=== PATIENT | female | born 1990 | race Caucasian/White ===

== ENCOUNTER 2023-03-30 13:34 | Outpatient (CLI) | payer OTHER, SELFPAY | END 2023-03-30 13:35 | disposition home or self-care (01) | PROVIDERS: PCP Obstetrics & Gynecology; Visit Provider Advanced Practice Midwife | DX: Z34.91 Encounter for supervision of normal pregnancy, unspecified, first trimester (principal); Z3A.09 9 weeks gestation of pregnancy | CPT/HCPCS: 76817; 86592; 86703; 86762; 86787; 86803; 86850; 86900; 86901; 87086; 87340 ==

== ENCOUNTER 2023-06-22 13:58 | Outpatient (CLI) | payer OTHER, SELFPAY ==
--- NOTE | 2023-06-22 14:00 | CRLHL7_ITS ---
For Patients: As a result of the Century Cures Act, medical imaging exams and procedure reports are released immediately into your electronic medical record. You may view this report before your referring provider. If you have questions, please contact your health care provider. INDICATION: Evaluate anatomy. COMPARISON: 03/30/2023 TECHNIQUE: Real time carr scale imaging of the fetus was performed as well as color Doppler analysis of the umbilical vessels. FINDINGS: Sonographic imaging demonstrates a single living intrauterine gestation. Fetus demonstrates a regular cardiac rate of 129 beats per minute. Fetus has a vertex position. The placenta lies left anterior. The heads of the placenta is located 4.4 cm from the internal cervical os. Amniotic fluid volume appears normal. Single deepest vertical pocket: 4.8 cm. The cervix is closed and measures 3.9 cm in length. The composite ultrasound gestational age is calculated at 22 weeks 1 day with an estimated sonographic due date of 10/25/2023. The estimated weight is 505 grams which lies at the 95th %. The following biometric measurements were obtained: Biparietal diameter: 5.2 cm/21 weeks 6 days 73rd% Head circumference: 19.5 cm/21 weeks 5 days 58th% Abdominal circumference: 18.1 cm/23 weeks 0 days 89th% Femur length: 3.8 cm/22 weeks 1 day 69th% The HC/AC ratio measures: 1.08 range (1.05-1.23) On anatomic survey, there is a normal appearance of the cerebral ventricles, cavum septi pellucidi, cisterna magna and cerebellum. The nose, lips, and facial profile appear normal. The cervical, thoracic and lumbar spine are well visualized and appear normal. There is a normal four-chamber heart view and the left and right ventricular outflow tracts appear normal. The diaphragm and stomach appear normal. The kidneys and bladder also appear normal. There is a normal three-vessel cord and cord insertion site. The four extremities appear normal. IMPRESSION: Concordant clinical and sonographic dating. No intrinsic abnormalities noted on anatomic survey. Dictated by Evin Turner MD @ 06/22/2023 3:25:02 PM (Electronically Signed)
== END 2023-06-22 13:59 | disposition home or self-care (01) ==
LOC: US 13:58
PROVIDERS: Visit Provider Advanced Practice Midwife
DX: Z34.92 Encounter for supervision of normal pregnancy, unspecified, second trimester (principal); Z3A.22 22 weeks gestation of pregnancy
CPT/HCPCS: 76805

== ENCOUNTER 2023-08-06 19:21 | Emergency (ER) | payer OTHER, SELFPAY ==
[2023-08-06 19:43] VITALS: BP 110/68; PULSE 86; RESP 18; TEMP 36.6; O2SAT 99
--- NOTE | 2023-08-06 20:15 | ED_ITS ---
HPI - General Adult General Time Seen by Provider: 20:15 Date Seen: 08/06/23 Chief complaint: Unspecified Complaint, Adult Stated complaint: 27 weeks --fever, hives, headache Time Seen by Provider: 08/06/23 19:51 Source: patient, family, RN notes reviewed and old records reviewed Mode of arrival: ambulatory Limitations: no limitations History of Present Illness HPI narrative: 33-year-old at 27 + 4 with BOBO 10/31/2023 presents with headache and fever for couple of days. Headache is frontal and on the top of the head, waxes and wanes. Does not seem to be worse with position or activity. She has had a fever up to 101.8. Occasional cough, no chest pain. Denies sore throat, has had nasal congestion with her anti , says she had negative COVID test yesterday. No abdominal pain, nausea, vomiting, diarrhea, urinary symptoms. movement is present, no leakage of fluid or abdominal pain, no cramps or contractions. Patient is also noted migratory hives with this, predominantly on the upper inner thighs but also on the arms, abdomen, this is itchy and patient did take Benadryl for yesterday. Related Data Home Medications Medication Instructions Recorded Confirmed ascorbate calcium (vitamin C) 500 500 mg PO QDAY 03/30/23 08/06/23 mg tablet ascorbic acid 30 mg-collagen, tab PO 03/30/23 08/06/23 hydrolyzed 833.3 mg tablet (Collagen Skin Renewal) cholecalciferol (vitamin D3) 25 25 mcg PO QDAY 03/30/23 08/06/23 mcg (1,000 unit) capsule docosahexaenoic acid 200 mg mg PO 03/30/23 08/06/23 capsule ( DHA) glucosamine sulfate 500 mg tablet 500 mg PO QDAY 03/30/23 07/20/23 (Glucosamine) lutein 6 mg capsule 6 mg PO QDAY 03/30/23 07/20/23 multivitamin 1 tab PO QDAY 03/30/23 08/06/23 vitamin B complex 1 tab PO QDAY 03/30/23 08/06/23 biotin 1 mg capsule 1 mg PO QDAY 08/06/23 08/06/23 omega-3 fatty acids 500 mg capsule 500 mg PO QDAY 08/06/23 08/06/23 Allergies Allergy/AdvReac Type Severity Reaction Status Date / Time No Known Drug Allergies Allergy Verified 07/20/23 13:54 [facility] Medical History (Updated 08/06/23 @ 21:53 by Reno Li MD) Normal spontaneous vaginal delivery (01/20/22) ?O80 - Encounter for full-term uncomplicated delivery (ICD-10) Surgical History (Updated 03/30/23 @ 13:22 by Maribel Shirley CNM) History of wisdom tooth extraction (2010) ?K08.409 - Partial loss of teeth, unspecified cause, unspecified class (ICD- 10) Family History (Updated 03/30/23 @ 13:23 by Maribel Shirley CNM) Maternal Grandmother Atrial septal defect Maternal Grandfather Heart disease Mother No problems noted. Father No problems noted. Sister No problems noted. 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 Seat Belt Use: Routinely Smoking: Denies past/present Alcohol/day: Denies while , not prior Caffeine: 2 cups of coffee Drug Use: Denies past/present Chicken Pox: Yes as a child MRSA: Denies Smoking Status: Never smoker Non-prescribed substance use: denies use Little interest or pleasure in doing things: not at all Feeling down, depressed, or hopeless: not at all Exam Const: Vital Signs, click to edit/add: Vital Signs - 24 hr 08/06/23 19:43 Temperature 97.8 F Pulse Rate [Left P ulse Oximeter] 86 Respiratory Rate 18 Blood Pressure [Ri ght Upper Arm] 110/68 Pulse Oximetry 99 Oxygen Delivery Me thod Room Air Course Course ED Course: Patient seen examined, prior records reviewed. Patient presents today with fever, hives, and mild cough. In the emergency department, she is afebrile and feels better is. She has had headache with this but no nuchal rigidity, meningitis or acute encephalitis unlikely. COVID, influenza, strep are ordered along with chest x-ray and urinalysis, blood test. Patient will be given fluids, Benadryl IV, and monitor in the department. Suspect viral process, and if labs are reassuring in no source of infection found today, continue symptomatic treatment only. Reevaluation(s) Time of Reevaluation #1: 21:51 Reevaluation #1: Labs independently interpreted by me with normal CBC, hemoglobin is slightly low likely related , basic panel is reassuring other than mild hypokalemia urinalysis not consistent with infection, COVID, influenza, RSV are negative. Chest x-ray independently interpreted by me negative for acute findings. Patient is stable for discharge with outpatient follow-up as needed. Can continue Benadryl as needed for itching, Tylenol as needed for fever. Vital Signs Vital signs: Initial Vital Signs Temperature 97.8 F 08/06/23 19:43 Temperature Source Temporal Artery Scan 08/06/23 19:43 Pulse Rate 86 08/06/23 19:43 Pulse Rhythm Regular 08/06/23 19:43 Respiratory Rate 18 08/06/23 19:43 Blood Pressure 110/68 08/06/23 19:43 Blood Pressure Mean 82 08/06/23 19:43 Blood Pressure Position Sitting 08/06/23 19:43 Pulse Oximetry 99 08/06/23 19:43 Oxygen Delivery Method Room Air 08/06/23 19:43 Vital Signs Temperature 97.8 F 08/06/23 19:43 Pulse Rate 86 08/06/23 19:43 Respiratory Rate 18 08/06/23 19:43 Blood Pressure 110/68 08/06/23 19:43 Pulse Oximetry 99 08/06/23 19:43 Oxygen Delivery Method Room Air 08/06/23 19:43 Temperature 97.8 F 08/06/23 19:43 Pulse Rate 86 08/06/23 19:43 Respiratory Rate 18 08/06/23 19:43 Blood Pressure 110/68 08/06/23 19:43 Pulse Oximetry 99 08/06/23 19:43 Oxygen Delivery Method Room Air 08/06/23 19:43 Medical Decision Making Lab Data Labs: Lab Results 08/06/23 08/06/23 Range/Units 20:33 20:40 WBC 5.58 (4.50-11.00) K/uL RBC 3.65 L (4.00-5.20) m/uL Hgb 10.9 L (12.0-16.0) gm/dL Hct 32.5 L (33.0-51.0) % MCV 89 (80-100) fL MCH 30 (26-34) pg MCHC 34 (32-36) gm/dL RDW Coeff of Arnav 12.8 (11.5-15.5) % Plt Count 134 L (140-440) K/uL Neut % (Auto) 70.0 (42.0-72.0) % Lymph % (Auto) 22.0 (20-44) % Wallace % (Auto) 5.6 (0.0-11.0) % Eos % (Auto) 0.2 (0.0-7.0) % Baso % (Auto) 0.2 (0.0-3.0) % Neut # (Auto) 3.91 (1.7-7.0) K/uL Lymph # (Auto) 1.23 (0.90-2.90) K/uL Wallace # (Auto) 0.30 (0.00-0.90) K/UL Eos # (Auto) 0.01 (0.00-0.50) K/uL Baso # (Auto) 0.01 (0.00-0.30) K/uL Abs Immat Gran (auto) 0.11 (0.00-0.30) K/uL Imm/Tot Granulo (auto) 2.0 % Sodium 135 (135-149) mmol/L Potassium 3.2 L (3.6-5.1) mmol/L Chloride 105 (96-114) mmol/L Carbon Dioxide 23 (20-32) mmol/L Anion Gap 7 (7-15) mEq/L BUN 7 (5-24) mg/dL Creatinine 0.6 (0.5-1.5) mg/dL Estimated GFR 122 ml/min Glucose 106 (60-115) mg/dL Calcium 9.0 (8.4-10.6) mg/dL Urine Color Yasmeen A (Yellow) Urine Appearance Slightly Cloudy A (Clear) Urine pH 7.0 (5.0-8.5) Ur Specific [place] 1.020 (1.000-1.030) Urine Protein 1+ A (Negative) Urine Glucose (UA) Negative (Negative) Urine Ketones Trace A (Negative) Urine Blood Negative (Negative) Urine Nitrite Negative (Negative) Urine Bilirubin Negative (Negative) Urine Urobilinogen 1.0 (0.2-1.0) Ur Leukocyte Esterase Trace A (Negative) Urine RBC 0-2 (0-2) Urine WBC 2-5 (0-5) Ur Squamous Epith Cells Moderate A (None-Few) Urine Bacteria Few A (None) SARS-CoV-2 (PCR) Negative SARS-CoV-2 (Negative) Influenza Type A (PCR) Negative PCR FLU A (Negative) Influenza Type B (PCR) Negative PCR FLU B (Negative) RSV (PCR) Negative PCR RSV (Negative) Discharge Plan Discharge Clinical Impression: Fever, Urticaria Patient Disposition: Home, Self-Care Condition: Stable Instructions: Urticaria (ED), Fever in Adults (ED) Additional Instructions: Take Tylenol as needed for fever. Follow-up with your primary care doctor in 2- 3 days. You may take Benadryl to help with itching. Activity Level: No Restrictions Prescriptions: No Action omega-3 fatty acids 500 mg capsule 500 mg PO QDAY biotin 1 mg capsule 1 mg PO QDAY DHA 200 mg capsule PO multivitamin Tablet 1 tab PO QDAY ascorbate calcium (vitamin C) 500 mg tablet 500 mg PO QDAY vitamin B complex Tablet 1 tab PO QDAY cholecalciferol (vitamin D3) 25 mcg (1,000 unit) capsule 25 mcg PO QDAY glucosamine sulfate [Glucosamine] 500 mg tablet 500 mg PO QDAY Rx Instructions: administer with a meal Collagen Skin Renewal 30-833.3 mg tablet PO lutein 6 mg capsule 6 mg PO QDAY Rx Instructions: give with meal/snack Follow Up/Referrals: Provider,Not a Local [Referring] - Stand Alone [facility]: [facility] Info Instructions
--- NOTE | 2023-08-06 20:23 | CRLHL7_ITS ---
For Patients: As a result of the Cures Act, medical imaging exams and procedure reports are released immediately into your electronic medical record. You may view this report before your referring provider. If you have questions, please contact your health care provider. INDICATION: Shortness of breath, cough, fever. TECHNIQUE: Chest 2 views. COMPARISON: None. FINDINGS: Cardiovascular and mediastinum: Heart size and vasculature are normal in caliber and appearance. Lungs and pleural spaces: Lungs are clear. No sign of infiltrate or mass. No sign of pleural effusion. No pneumothorax. Bones and soft tissues: No significant findings. IMPRESSION: No acute or significant findings. Dictated by Anthony Mesa MD @ 08/06/2023 9:28:38 PM (Electronically Signed)
[2023-08-06 20:39] LABS: Appearance Urine Slightly Cloudy (Clear); Bilirubin Urine Negative (Negative); Blood Urine Negative (Negative); Color Urine Amber (Yellow); Glucose Urine Negative (Negative); Ketones Urine Trace (Negative); Leukocyte Esterase Urine Trace (Negative); Nitrite Urine Negative (Negative); Protein Urine 1+ (Negative)
[2023-08-06] MEDS: LACTATED RINGERS 1000 ML 1,000 ML IV (20:40)
[2023-08-06] MEDS: diphenhydrAMINE 50 MG/ML inj 25 MG IVP (20:40)
[2023-08-06 20:49] LABS: Bacteria Urine Few; RBC Urine 0-2 (0-2); Squamous Epithelial Cell Urine Moderate (None-Few)
[2023-08-06 20:53] LABS: Basophils Absolute Auto 0.01 K/uL (0.00-0.30); Basophils Percent Auto 0.2 % (0.0-3.0); Eosinophils Absolute Auto 0.01 K/uL (0.00-0.50); Eosinophils Percent Auto 0.2 % (0.0-7.0); Hematocrit 32.5 % (33.0-51.0); Hemoglobin* 10.9 gm/dL (12.0-16.0); Immature Granulocytes Abs Auto 0.11 K/uL (0.00-0.30); Lymphocytes Absolute Auto 1.23 K/uL (0.90-2.90); Mean Corpuscular HGB Conc 34 gm/dL (32-36); Mean Corpuscular Hemoglobin 30 pg (26-34); Mean Corpuscular Volume 89 fL (80-100); Monocytes Percent Auto 5.6 % (0.0-11.0); Neutrophils Absolute Auto 3.91 K/uL (1.7-7.0); Platelet Count* 134 K/uL (140-440); RDW Coefficient of Variation % 12.8 % (11.5-15.5); Red Blood Count 3.65 m/uL (4.00-5.20); White Blood Count* 5.58 K/uL (4.50-11.00)
[2023-08-06 21:01] LABS: Slide Review Reflex No
[2023-08-06 21:06] LABS: Chloride* 105 mmol/L (96-114); Sodium* 135 mmol/L (135-149)
[2023-08-06 21:07] LABS: Potassium* 3.2 mmol/L (3.6-5.1)
[2023-08-06 21:09] LABS: Anion Gap 7 mEq/L (7-15); Carbon Dioxide* 23 mmol/L (20-32); Creatinine* 0.6 mg/dL (0.5-1.5); Estimated Glomerular Filt Rate 122 ml/min
[2023-08-06 21:10] LABS: Blood Urea Nitrogen* 7 mg/dL (5-24); Glucose* 106 mg/dL (60-115)
[2023-08-06 21:33] LABS: PCR FLU A Negative PCR FLU A (Negative); PCR FLU B Negative PCR FLU B (Negative); PCR RSV Negative PCR RSV (Negative)
[2023-08-06 21:34] LABS: SARS PCR* Negative SARS-CoV-2 (Negative)
[2023-08-06 22:01] VITALS: BP 112/74; PULSE 80; RESP 12; TEMP 36.6
[2023-08-06 23:00] LABS: Strep A DNA Probe* NOT DETECTED (Not Detectd)
== END 2023-08-06 22:00 | disposition home or self-care (01) ==
PROVIDERS: Emergency Provider Family Medicine; PCP Family Medicine
DX: R50.9 Fever, unspecified (principal); L50.9 Urticaria, unspecified; Z3A.27 27 weeks gestation of pregnancy
CPT/HCPCS: 36415; 71046; 80048; 81001; 85025; 87086; 87631; 87651; 96365; 99283; 99284; J1200; J7120

== ENCOUNTER 2023-08-16 13:46 | Outpatient (CLI) | payer OTHER, SELFPAY | END 2023-08-16 13:47 | disposition home or self-care (01) | LOC: NFLDREF 08-20 07:16 | PROVIDERS: PCP Family Medicine; Visit Provider Advanced Practice Midwife | DX: Z34.93 Encounter for supervision of normal pregnancy, unspecified, third trimester (principal); Z3A.29 29 weeks gestation of pregnancy | CPT/HCPCS: 86592 ==

== ENCOUNTER 2023-10-04 13:58 | Outpatient (CLI) | payer OTHER, SELFPAY ==
[2023-10-05 16:03] LABS: Strep B DNA Probe Negative (Negative); Strep B Susceptibility Needed? No
== END 2023-10-04 13:59 | disposition home or self-care (01) ==
LOC: NFLDREF 13:58
PROVIDERS: PCP Family Medicine; Visit Provider Advanced Practice Midwife
DX: Z34.93 Encounter for supervision of normal pregnancy, unspecified, third trimester (principal); Z3A.36 36 weeks gestation of pregnancy
CPT/HCPCS: 87081; 87653

== ENCOUNTER 2023-10-25 12:14 | Outpatient (CLI) | payer OTHER, SELFPAY ==
--- NOTE | 2023-10-25 12:15 | CRLHL7_ITS ---
For Patients: As a result of the Century Cures Act, medical imaging exams and procedure reports are released immediately into your electronic medical record. You may view this report before your referring provider. If you have questions, please contact your health care provider. INDICATION: Small for dates. TECHNIQUE: Ultrasound OB pelvis transabdominal. Real-time carr-scale imaging of the fetus was performed as well as color Doppler and spectral Doppler analysis of the umbilical artery. COMPARISON: 06/22/2023. FINDINGS: Provided gestational age: 39 weeks 1 day Intrauterine gestation: Present. cardiac activity: 133 BPM. Presentation: Vertex. Amniotic fluid volume: Normal. The deepest vertical pocket is 6.4 cm. Placenta: Anterior. Cervix: Not well-seen. Biparietal diameter: 9.3 cm Head circumference: 33.2 cm Abdominal circumference: 34.2 cm Femur length: 7.6 cm The composite ultrasound gestational age is 38 weeks and 2 days. The estimated weight is 3442 grams or 7 pounds and 9 ounces. This corresponds to the 48 percentile. Incidentally the stomach was noted to be moderately distended. IMPRESSION.: 1. Viable intrauterine gestation with biometry corresponding to the 48 percentile. 2. Normal amniotic fluid volume. 3. Incidentally noted distention of the stomach. At this point in gestation, recommend correlation with exam and any symptoms after . Dictated by Maribel Haque MD @ 10/25/2023 1:07:08 PM (Electronically Signed)
== END 2023-10-25 12:15 | disposition home or self-care (01) ==
LOC: US 12:15
PROVIDERS: PCP Family Medicine; Visit Provider Advanced Practice Midwife
DX: O36.5930 Maternal care for other known or suspected poor fetal growth, third trimester, not applicable or unspecified (principal); Z3A.39 39 weeks gestation of pregnancy
CPT/HCPCS: 76816

== ENCOUNTER 2023-11-02 15:42 | Outpatient (CLI) | payer OTHER, SELFPAY ==
[2023-11-02 16:57] VITALS: PULSE 81; O2SAT 99
[2023-11-02 16:58] VITALS: BP 119/69; PULSE 74; RESP 16; TEMP 36.8
--- NOTE | 2023-11-02 19:00 | PC.OBNST ---
NST Note NST Note Start: 11/02/23 16:42 Freq: ONCE Status: Active Protocol: Document 11/02/23 18:59 [facility] (Rec: 11/02/23 19:00 [facility] [id number]) NST Note 2 Para (# of births) 1 EDC 10/31/23 Gestational Age In Weeks & Days 40 Weeks & 2 Days Patient Presented with Complaint(s) of Contractions/cramping Reactive Yes Appropriate for Gestational Age Yes OLYA Clifton RN Date 11/02/23 Reactive Yes Appropriate for Gestational Age Yes OLYA Aldridge RN Date 11/02/23 OB NST charge Yes Complete NST Note via Write Note Yes The provider's electronic signature indicates the NST is reactive/appropriate for gestational age. *Note to provider: If an addendum is required, open the patient's chart and click on the note under the Nurse/Allied Health tab.
== END 2023-11-02 19:00 | disposition home or self-care (01) ==
LOC: OB OUT 15:45 → OB 16:39
PROVIDERS: PCP Family Medicine; Visit Provider Advanced Practice Midwife
DX: O47.1 False labor at or after 37 completed weeks of gestation (principal); Z3A.40 40 weeks gestation of pregnancy
CPT/HCPCS: 59025; G0463

== ENCOUNTER 2023-11-02 22:50 | Outpatient (CLI) | payer OTHER, SELFPAY ==
[2023-11-02 23:07] VITALS: BP 119/69; PULSE 84; RESP 16; TEMP 36.9
[2023-11-02 23:16] VITALS: PULSE 84; O2SAT 98
[2023-11-02 23:21] VITALS: PULSE 86; O2SAT 97
[2023-11-02 23:26] VITALS: PULSE 84; O2SAT 97
[2023-11-02 23:31] VITALS: PULSE 82; O2SAT 97
[2023-11-02 23:36] VITALS: PULSE 83; O2SAT 97
[2023-11-02] MEDS: MORPHINE 10 MG/ML inj IM (23:55)
[2023-11-02] MEDS: hydrOXYzine pamoate 25 MG CAPSULE 100 MG PO (23:55)
--- NOTE | 2023-11-03 04:58 | PC.OBNST ---
NST Note NST Note Start: 11/02/23 22:56 Freq: ONCE Status: Discharge Protocol: Document 11/03/23 00:35 [facility] (Rec: 11/03/23 00:37 [facility] [id number]) NST Note 2 Para (# of births) 1 EDC 10/31/23 Gestational Age In Weeks & Days 40 Weeks & 3 Days Patient Presented with Complaint(s) of Contractions/cramping Reactive Yes RN Daryl Pope RN Date 11/03/23 Reactive Yes RN Daryl Pope RN Date 11/03/23 OB NST charge Yes Complete NST Note via Write Note Yes The provider's electronic signature indicates the NST is reactive/appropriate for gestational age. *Note to provider: If an addendum is required, open the patient's chart and click on the note under the Nurse/Allied Health tab.
== END 2023-11-03 00:06 | disposition home or self-care (01) ==
LOC: OB OUT 22:51 → OB 22:51
PROVIDERS: PCP Family Medicine; Visit Provider Advanced Practice Midwife
DX: O47.1 False labor at or after 37 completed weeks of gestation (principal); Z3A.40 40 weeks gestation of pregnancy
CPT/HCPCS: 59025; G0463; A9270; J2270

== ENCOUNTER 2023-11-03 02:08 | Inpatient (IN) | payer OTHER, SELFPAY ==
[2023-11-03] VITALS (13 sets, daily range): BP systolic 99–131; BP diastolic 59–79; PULSE 64–98; RESP 15–16; TEMP 36.4–37.2; O2SAT 97–98; BMI 29.5
[2023-11-03 02:27] LABS: Basophils Percent Auto 0.3 % (0.0-3.0); Eosinophils Percent Auto 0.5 % (0.0-7.0); Hemoglobin* 11.4 gm/dL (12.0-16.0); Immature Granulocytes Pct Auto 0.3 %; Lymphocytes Percent Auto 14.7 % (20-44); Mean Corpuscular HGB Conc 34 gm/dL (32-36); Mean Corpuscular Hemoglobin 28 pg (26-34); Mean Corpuscular Volume 83 fL (80-100); Monocytes Percent Auto 6.2 % (0.0-11.0); Platelet Count* 95 K/uL (140-440); Red Blood Count 4.08 m/uL (4.00-5.20); White Blood Count* 11.63 K/uL (4.50-11.00)
[2023-11-03 02:30] LABS: Slide Review Reflex No
[2023-11-03] MEDS: OXYTOCIN 30 unit/500 ML in NS 30 UNIT/500 ML BAG 300 UNIT IVPB (02:47)
--- NOTE | 2023-11-03 04:04 | W.PM.OBVAGDE ---
OB Procedure Vag Delivery Mother Details Mother Details: The patient is a 33 year-old, 2, now Para 2, admitted on 11/03/23 at 40 3/7 weeks gestation. : 2 Para: 2 Weeks Gestation: 40 Additional Details Amniotic Membrane Status: SROM Amniotic Membrane Rupture Date: 11/03/23 Amniotic Membrane Rupture Time: 02:25 Amniotic Membrane Fluid Description: Clear Analgesia/Anesthesia Type: Local Waterbirth: Yes Pitcoin: Yes ([facility] only) Intrapartal Events: Precipitous Labor <3 Hrs Labor Onset: 00:20 Complete: 02:08 Pushin:35 Heart: heart tones during second stage were assessed just prior to entering tub with delivery imminent and occurring shortly after entering. Delivery Details Delivery Date: 11/03/23 Delivery Time: 02:39 Route of delivery: Infant Gender: Female Viability: Alive; Heart Rate Present Position at Delivery: OA Delivery Details: Patient had presented to triage multiple times in the last 12 hours. She was unchanged with multiple triage exams and given morphine and Vistaril then discharge home at 1205. FHR tracing was reactive with discharge from triage. She initially got great relief but reports that contractions got more intense when she arrived home, approximately 15 minutes after discharge. She returned to the center with an urge to push at 0208 am. Patient was admitted for spontaneous labor and progressed precipitously from previous exam. SROM noted at 0225 with clear fluid. Patient was complete at 0208 and pushing at 0235 just prior to entrance to the tub. Tub temp on entrance was higher than preferred at 103, cold water was added and ice buckets to bring temp to 100. Patient desired waterbirth and head was visible with efforts during contractions even prior to pushing. Given the likelihood of precipitous delivery, monitors were removed and she was assisted to tub. of a viable female at 0239, kneeling in the tub. Vertex delivered OA. No nuchal cord or shoulder. Body delivered easily and without incident. As baby was brought up from the water, cord was found around the shoulders and easily reduced. Infant passed between mothers legs after delivery a brought up from the water and placed on maternal lower abdomen with a weak cry. Tactile stimulation was done and crying was illicited, decision was made to clamp and cut at about 60 seconds to transfer to warmer for further evaluation. cried as soon as removed from maternal arms. Mother was assisted from the tub to the bed. Baby was brought to mothers chest once in the bed. APGARS were 6 at one minute and 8 at five minutes respectively. Mouth was bulb suctioned. Placenta with a 3 vessel cord delivered spontaneously at 0300. Upon initial inspection of placenta a small area on the side appears but able to bring cotyledon back together to create a complete appearance. Sent to pathology as a caution. Bleeding appropriate and minimal concern for retained placenta. Fundus firm. 2nd degree identified and repaired in typical fashion, superficial separation of skin extended toward rectum. Rectal exam performed, no concern for interruption of rectal muscle. QBL 50 cc with EBL 300 cc from tub. Mother and baby stable; mother plans to breastfeed. weight pending. 1 Minute Interval Total Score: 6 5 Minute Interval Total Score: 8 Additional Details Shoulder Dystocia: No Placenta Delivery Time: 03:00 Placental Delivery Description: Spontaneous Delivery repair: Vicryl Procedure Done: Global Blood Loss: 350 Laceration: Perineal - 2nd Degree Blood Loss Measurement Type: QBL (+ EBL from tub) Bakri Used: No Sponge/Need Count Correct: Yes Cord Vessel Description: 3 Vessels and Around Body (over shoulders, easily reduced) Event Summary Status: Mother and were stable after delivery. Disposition: floor
--- NOTE | 2023-11-03 04:28 | W.PM.LDBA ---
Subjective History of Present Illness Date Seen: 11/03/23 Narrative: Jane is a 33 yo at 40 3/7 weeks gestation being admitted to Labor and Delivery for spontaneous onset of labor. She has been to triage multiple times this evening and discharge after hours of no cervical change. She was most recently given morphine and Vistaril. She initially got relief and was able to relax for the ride home and rest. After arriving home, approximately 15 minutes later she felt contractions return quickly intensify. She started to feel pressure and returned to the center and soon after began having an urge to push. Her full history and physical was dictated by Pedro Hermosillo CNM on 10/18/2023. Please see this for details. Specific Issues/Plans H & P done 10/18/23 by Pedro Hermosillo IOL 11/07 1. Hypoechoic area noted near placenta on tech report of anatomy scan, not noted on final report 2. Hgb 10.1 at 29 weeks recommended iron supplement 3. Measuring small for dates at 38 wks, growth u/s at 39.1 wks: EFW 48%. Distended stomach noted, no follow up needed. Pap due pp TDAP:Declines on 08/16. Offer at next appt. Flu:Declines Covid:Declines RSV: declines OB - Problem Based A/P Additional Plan (1) Pain during labor: Status: Acute (2) Spontaneous onset of labor: Status: Acute (3) 40 weeks gestation of : Status: Acute Plan ASSESSMENT:? 33 at 40 3/7 weeks gestation? complicated by:? Labor type: Spontaneous, Active labor? FHR reassuring on admission Labor complicated by: quick change following morphine and Vistaril administration? GBS negative? ? PLAN:? 1. Routine intrapartum cares as ordered. Continue with expectant management? 2. Monitoring per policy, intermittent. Will attempt to get a NST prior to tub. Patient NST was reactive at 0005 discharge.? 3. Planning unmedicated . Desires water . Consent signed. Hep C negative. Candidate for analgesia of choice if desired.?? 4. Patient encouraged to reposition and ambulate to promote physiologic labor and . 5. Anticipate ? Delivery/Labor/Induction Plan Plan: expectant management OB Exam Physical Exam Vital signs: Temp Pulse BP 98.5 F 89 121/79 11/03/23 04:11 11/03/23 04:26 11/03/23 04:26 Narrative: Vitals Reviewed Constitutional:? Alert and oriented x3 HEENT:? Normocephalic, atraumatic Neck:? Supple Abdomen:? Soft, nontender, and gravid. Vertex by Jack's, confirmed with cervical exam. Extremities:? No edema or erythema Cervix: 10 cm/+3 FHR on admission 120s, minimal to moderate variablity Detailed Labor and Delivery Exam Patient Gravid: Yes Fetus (Single) Heart Rate Baseline: 120
[2023-11-03] MEDS: IBUPROFEN 600 MG TABLET PO ×3 (04:52→18:15)
[2023-11-03] MEDS: ACETAMINOPHEN 500 MG TABLET 1000 MG PO ×2 (07:23→14:09)
[2023-11-03] MEDS: DOCUSATE SODIUM 100 MG CAPSULE PO (14:09)
[2023-11-04 07:58] LABS: Hemoglobin* 10.5 gm/dL (12.0-16.0)
--- NOTE | 2023-11-04 08:44 | PM.OBDSVD1 ---
DS: Providers Provider Date Seen: 11/04/23 Date of admission: 11/03/23 02:08 Primary care physician: Pavan Muir MD Admitting Clinician: Maribel Shirley CNM Attending Physician on discharge: Lara Gandhi CNM Date of Discharge: 11/04/23 DS: Diagnosis Discharge Diagnosis (1) care and examination immediately after delivery: Status: Acute (2) Lactating mother: Status: Acute (3) Thrombocytopenia affecting : Status: Acute Problem details: Diagnosed with admission labs during delivery. Resulted after . Exam Narrative: Exam Narrative: GENERAL APPEARANCE:? normal affect, alert, no distress MOOD:? appropriate CHEST:? clear to auscultation HEART:? regular rate and rhythm ABDOMEN:? soft, non-tender the uterine fundus is 1 cm below Umbilicus, Midline and is appropriate for the stage of recovery. PERINEUM:? mild edema of the perineum, there is a Perineal Laceration,? that is healing well. EXTREMITIES:? normal and trace edema Const: Vital Signs, click to edit/add: Vital Signs - 24 hr 11/03/23 14:03 11/03/23 18:12 11/03/23 23:38 Temperature 97.6 F 98.1 F Pulse Rate [Pulse Oximeter] 72 69 64 Respiratory Rate 15 15 Blood Pressure [Le ft Arm] 127/76 111/75 115/78 Pulse Oximetry 98 98 97 Oxygen Delivery Me thod Room Air Room Air Documenting provider has reviewed patient's vital signs: yes OB - DS: Summary Hospital Course Hospital Course: Jane is a 33 y.o. who was admitted to [facility] for active labor. ?She had an uncomplicated NVD.?The patient feels well. ?The pain is well controlled with current medications. ?She has no new complaints. ?She is breast feeding and reports things are going well.? the patient has done well.? Vitals have been stable.? She has remained afebrile.? Has a good appetite, is tolerating a general diet. ?She is voiding without difficulty.? She is passing gas and has not had a bowel movement.? She is ambulating and denies any dizziness.? Has Small amount of rubra lochia. ?She is planning condoms or the Paraguard IUD for prevention. We discussed her low platelet level, future and follow up plan to check level again around 6 weeks . Peripartum Data Infant delivery method: Vaginal Laceration description: Perineal - 2nd Degree complications: none Infant Gender: Female Infant Discharge Plan: Home Status at Discharge Functional status at discharge: independent ambulation Overall status at discharge: patient is progressing back to baseline Time Spent with Patient Time attestation: Total time spent providing and/or coordinating discharge services: Time spent: Less than 30 minutes Discharge Plan Discharge Disposition: Home, Self-Care Date of Admission: 11/03/23 02:08 Attending Provider on Discharge: Lara Gandhi Primary Care Provider: Pavan Muir Condition: Stable Anticipated Discharge Date/Time: 11/04/23 12:00 Discharge Medications: New docusate sodium 100 mg Capsule 100 mg PO DAILY Qty: 90 2RF ibuprofen 600 mg Tablet 600 mg PO Q6H PRNQty: 60 0RF acetaminophen 500 mg Tablet 1,000 mg PO Q6H PRNQty: 0 0RF Continued omega-3 fatty acids 500 mg capsule 500 mg PO QDAY biotin 1 mg capsule 1 mg PO QDAY DHA 200 mg capsule 200 mg PO DAILY multivitamin Tablet 1 tab PO QDAY ascorbate calcium (vitamin C) 500 mg tablet 500 mg PO QDAY vitamin B complex Tablet 1 tab PO QDAY cholecalciferol (vitamin D3) 25 mcg (1,000 unit) capsule 25 mcg PO QDAY glucosamine sulfate [Glucosamine] 500 mg tablet 500 mg PO QDAY Rx Instructions: administer with a meal Collagen Skin Renewal 30-833.3 mg tablet 1 tab PO DAILY lutein 6 mg capsule 6 mg PO QDAY Rx Instructions: give with meal/snack magnesium 250 mg tablet 250 mg PO QDAY ferrous sulfate [High Potency Iron] 10 mg PO .every other day Discharge Orders: Discharge Order (Routine); Ordered 11/04/23 Ordered By: Lara Gandhi Patient Education: OB Over the Counter Medication Information, OB Vaginal/Breast Feeding Additional Instructions: Discharge instructions were reviewed with the patient including signs and symptoms of infection and home going medications Nothing vaginally for 6 weeks: no tampons or intercourse Off Work or School for 6 weeks 2-week visit: discuss infant feeding concerns, review control options and screen for anxiety/depression. 6-week visit for an annual exam. consultation services are available to all mothers and babies for the first year after delivery.? To make an appointment, please call [phone]. Activity Level: Activity as Tolerated Discharge Diet: Regular Follow Up Appointments: [facility] [Provider Group] Forms: MyHealth Info Instructions
[2023-11-04 08:50] VITALS: BP 109/74; PULSE 71; RESP 16; TEMP 36.6; O2SAT 97
[2023-11-04] MEDS: DOCUSATE SODIUM 100 MG CAPSULE PO (08:55)
[2023-11-04] MEDS: ACETAMINOPHEN 500 MG TABLET 1000 MG PO (08:55)
== END 2023-11-04 15:01 | disposition home or self-care (01) | DRG 806 ==
LOC: OB OUT 02:23 → OB 02:23
PROVIDERS: Admitting Provider Advanced Practice Midwife; PCP Family Medicine; Visit Provider Advanced Practice Midwife
DX: O62.3 Precipitate labor (principal); O99.12 Other diseases of the blood and blood-forming organs and certain disorders involving the immune mechanism complicating childbirth; D69.6 Thrombocytopenia, unspecified; O70.1 Second degree perineal laceration during delivery; Z37.0 Single live birth; Z3A.40 40 weeks gestation of pregnancy
CPT/HCPCS: 36415; 85018; 85025; 86850; 86900; 86901; 88307; A9270

== ENCOUNTER 2025-06-01 09:12 | Outpatient (CLI) | payer OTHER, SELFPAY ==
--- NOTE | 2025-06-01 09:15 | CRLHL7_ITS ---
For Patients: As a result of the Cures Act, medical imaging exams and procedure reports are released immediately into your electronic medical record. You may view this report before your referring provider. If you have questions, please contact your health care provider. OB ULTRASOUND LESS THAN 14 WEEKS, 06/01/2025 CLINICAL HISTORY: Early dating. COMPARISON: None. TECHNIQUE: Real time carr scale imaging of the fetus was performed. Transabdominal imaging performed. FINDINGS: Imaging: TA. LMP: 03/19/2025. BOBO by LMP: 12/24/2025. GA: 10 weeks 4 days. CLR: 4.6 cm, 11 weeks 3 days. BOBO: 12/18/2025. FHR: 155 bpm. Gest Sac: 4.9 cm, appears WNL. Yolk Sac: 2.8 mm, appears WNL. Right Ov: Not visualized. Left Ov: Not visualized. IMPRESSION: 1. Normal appearance of an early intrauterine . 2. The measurements and dates are given above. The average ultrasound age is 11 weeks 3 days with an estimated delivery date of 12/18/2025. 3. There is an incidental small intramural uterine fibroid. 4. There is a small perigestational fluid collection/subchorionic hematoma near the fundal aspect of the gestational sac measuring 1.7 x 0.9 x 0.7 cm. Lionel Mojica MD, FACR Pediatric/Diagnostic Radiologist [email or web address] Transcribed: 2:18 pm DW/Dictated by: Lionel Mojica MD @ 06/02/2025 2:02:00 PM (Electronically Signed)
== END 2025-06-01 09:13 | disposition home or self-care (01) ==
LOC: US 09:13
PROVIDERS: Visit Provider Advanced Practice Midwife
DX: Z34.91 Encounter for supervision of normal pregnancy, unspecified, first trimester (principal); O20.9 Hemorrhage in early pregnancy, unspecified; O34.11 Maternal care for benign tumor of corpus uteri, first trimester; D25.1 Intramural leiomyoma of uterus; Z3A.11 11 weeks gestation of pregnancy
CPT/HCPCS: 76801

== ENCOUNTER 2025-06-01 10:28 | Outpatient (CLI) | payer OTHER, SELFPAY | END 2025-06-01 10:29 | disposition home or self-care (01) | PROVIDERS: Visit Provider Advanced Practice Midwife | DX: O34.11 Maternal care for benign tumor of corpus uteri, first trimester (principal); D25.1 Intramural leiomyoma of uterus; O20.9 Hemorrhage in early pregnancy, unspecified; Z3A.11 11 weeks gestation of pregnancy | CPT/HCPCS: 83020; 83021; 85660; 86592; 86703; 86704; 86706; 86762; 86787; 86803; 86850; 87086; 87340 ==

== ENCOUNTER 2025-06-29 13:25 | Outpatient (CLI) | payer OTHER, SELFPAY | END 2025-06-29 13:26 | disposition home or self-care (01) | LOC: NFLDREF 13:26 | PROVIDERS: Visit Provider Advanced Practice Midwife | DX: O34.12 Maternal care for benign tumor of corpus uteri, second trimester (principal); D25.9 Leiomyoma of uterus, unspecified; Z3A.14 14 weeks gestation of pregnancy | CPT/HCPCS: 87491; 87591 ==

== ENCOUNTER 2025-08-10 12:10 | Outpatient (CLI) | payer OTHER, SELFPAY ==
--- NOTE | 2025-08-10 12:15 | CRLHL7_ITS ---
For Patients: As a result of the Century Cures Act, medical imaging exams and procedure reports are released immediately into your electronic medical record. You may view this report before your referring provider. If you have questions, please contact your health care provider. OB ULTRASOUND SURVEY TRANSABDOMINAL LMP: 03/19/2025. BOBO by LMP: 12/24/2025. GA: 20 w, 4 d. INDICATION: anatomy survey. TECHNIQUE: Real time carr scale imaging of the fetus was performed. Evaluate anatomy. Transabdominal imaging performed. position: Vertex. Cervix: Visualized. Technique: Transabdominal. Length of closed cervix: 3.6 cm. Placenta/cord: Placental position: Posterior. Technique: Transabdominal. Placenta tip to internal OS: 5-6 cm. Umbilical Cord: 3-vessel cord. Placenta insertion: Central. Amniotic Fluid: 3.6 cm SDP (greater than/equal to: 2- less than 8 cm). SURVEY: Calvarium/Spine: Cerebellum: 2.1 cm, 20 w 6 d. Cisterna Magna: 4 mm. Nuchal Fold: 5 mm. Lateral Ventricle: 5.3 mm. CSP: Yes. Midline Falx: Yes. Choroid Plexus: Yes. Spine: Yes. Abdomen: Stomach: Yes. Abd Cord Insertion: Yes. Urinary Bladder: Yes. Kidneys: Yes. Diaphragm: Yes. Face: Nose/lips: Yes. Orbital view: Yes. Profile: Yes. Limbs: Upper Extremities: Yes. Lower Extremities: Yes. Hands: Yes. Feet: Yes. Vascular: 4-Chamber Heart: Yes. LVOT: Yes. RVOT: Yes. 3VV: Yes. 3VTV: Yes. BPD: 4.85 cm. 20 w, 5 d, 53.5 percent. HC: 18.36 cm. 20 w, 5 d, 48.7 percent. AC: 16.32 cm. 21 w, 3 d, 70.6 percent. FL: 3.46 cm. 20 w, 6 d, 53.3 percent. FL/AC ratio: 21.20 percent. HC/AC ratio: 1.12. heart rate: 145 bpm. age by this US: 20 w, 6 d. BOBO by this US: 12/22/2025. EFW: 399.42 g. Weight: 0 lbs, 14 oz. Percentile by BOBO: 74.5 percent. IMPRESSION: 1. Concordance of clinical and sonographic dating. 2. Normal anatomic survey Evin Turner M.D. Diagnostic Radiologist [email or web address] SP/Dictated by: Evin Turner MD @ 08/10/2025 4:03:00 PM (Electronically Signed)
== END 2025-08-10 12:11 | disposition home or self-care (01) ==
LOC: US 12:10
PROVIDERS: Visit Provider Advanced Practice Midwife
DX: Z34.92 Encounter for supervision of normal pregnancy, unspecified, second trimester (principal); Z3A.20 20 weeks gestation of pregnancy
CPT/HCPCS: 76805

== ENCOUNTER 2025-10-06 12:35 | Outpatient (CLI) | payer OTHER, SELFPAY | END 2025-10-06 12:36 | disposition home or self-care (01) | LOC: NFLDREF 10-10 18:07 | PROVIDERS: Visit Provider Advanced Practice Midwife | DX: Z34.93 Encounter for supervision of normal pregnancy, unspecified, third trimester (principal) | CPT/HCPCS: 86780 ==